=== PATIENT | female | born 1975 | race Caucasian/White ===

== ENCOUNTER → 2020-11-18 | Outpatient (CLI) | payer OTHER ==
[~2020-11-18] MED LIST: LODINE CAP 300300 MG PO; NORFLEX 100 MG100 MG PO
== END ==
LOC: KOH-I 08:49
DX: S33.140D Subluxation of L4/L5 lumbar vertebra, subsequent encounter (principal); M48.07 Spinal stenosis, lumbosacral region; M47.817 Spondylosis without myelopathy or radiculopathy, lumbosacral region; M51.37 Other intervertebral disc degeneration, lumbosacral region; X58.XXXD Exposure to other specified factors, subsequent encounter
CPT/HCPCS: 72148

== ENCOUNTER 2021-04-20 19:21 | Emergency (ER) | payer OTHER ==
[2021-04-20 20:40] LABS: HEMOGLOBIN 13.4 gm/dl (12.3-15.3); RED BLOOD COUNT 4.68 M/UL (4.00-5.10); WHITE BLOOD COUNT 14.5 K/UL (4.5-11.0)
[2021-04-20 21:02] LABS: BUN/CREATININE RATIO 18 (0-10)
[2021-04-20] MEDS ORDERED: NORFLEX 100 MG100 MG PO (23:07)
[2021-04-20] MEDS ORDERED: LODINE CAP 300300 MG PO (23:07)
== END 2021-04-20 23:19 | disposition home or self-care (01) ==
LOC: ER1 19:21
PROVIDERS: Physician Assistant
DX: M54.41 Lumbago with sciatica, right side (principal); R10.9 Unspecified abdominal pain; R20.0 Anesthesia of skin
CPT/HCPCS: 80053; 81001; 83605; 83690; 85025; 87040; 87086; 96374; 96375; 99284; J1885; J2405

== ENCOUNTER 2022-03-29 18:21 | Emergency (ER) | payer OTHER ==
[2022-03-29] MEDS ORDERED: IBUPROFEN600 MG PO (23:07)
[2022-03-29] MEDS ORDERED: CYCLOBENZAPRINE10 MG PO (23:07)
[2022-03-29] MEDS ORDERED: AMOX TR-K CLV1 EAC4 PO (23:07)
== END 2022-03-29 23:15 | disposition home or self-care (01) ==
LOC: ER1 18:21
DX: S16.1XXA Strain of muscle, fascia and tendon at neck level, initial encounter (principal); V89.2XXA Person injured in unspecified motor-vehicle accident, traffic, initial encounter; Y92.410 Unspecified street and highway as the place of occurrence of the external cause
CPT/HCPCS: 72050; 96372; 99283; J1885; J2360